=== PATIENT | male | born 1955 | race Caucasian/White ===

== ENCOUNTER 2017-04-11 09:40 | Day surgery (SDC) | payer MEDICAID ==
[2017-04-04 08:42] VITALS: BMI 25.8
[2017-04-11 10:09] VITALS: RESP 18
--- NOTE | 2017-04-11 12:27 | PCM.SURG1 ---
Surgeon's Initial Post Op Note - Surgeon's Notes Surgeon: Dr. Angulo Dewaterer Operator: Dr. Colunga PGYIII; Angela Coe YUAN Type of Anesthesia: General Endo Anesthesia Administered By: MARTINE Pre-Operative Diagnosis: Ventral Hernia, Diastasis Recti Operative Findings: same Post-Operative Diagnosis: same Operation Performed: Repair of ventral hernia, Repair of Diastasis Recti, with mesh Specimen/Specimens Removed: preperitoneal fat Estimated Blood Loss: EBL {In ML}: 5 Blood Products Given: N/A Drains Used: Diaz Post-Op Condition: Good Date of Surgery/Procedure: 04/11/17 Time of Surgery/Procedure: 12:26
[2017-04-11] MEDS ORDERED: ceFAZolin 1 gm FROZEN Premix 0 GM/0 ML ML IVPB ONE (12:44)
[2017-04-11] MEDS ORDERED: Lidocaine 2% w Epi 1:100,000 Inj IJ ONE (12:44)
--- NOTE | 2017-04-11 13:19 | PCM.SURG1 ---
Surgeon's Initial Post Op Note - Surgeon's Notes Surgeon: Dr. Angulo Web Retailer: Angela Coe OMNubia III Pre-Operative Diagnosis: R Neck Lipoma Operative Findings: same Post-Operative Diagnosis: same Operation Performed: Excision of Lipoma R neck Specimen/Specimens Removed: lipoma Estimated Blood Loss: EBL {In ML}: 5 Blood Products Given: N/A Drains Used: No Drains Post-Op Condition: Good Date of Surgery/Procedure: 04/11/17 Time of Surgery/Procedure: 13:19
[2017-04-11 14:00] VITALS: BP 107/69; PULSE 65; TEMP 97.9; O2SAT 98
--- NOTE | 2017-04-11 20:16 | OP ---
PROCEDURE DATE: 04/11/2017 PREOPERATIVE DIAGNOSIS: Recurrent mass right side of the neck. POSTOPERATIVE DIAGNOSES: Recurrent mass right side of the neck and lipoma recurrent. PROCEDURE: Excision. FINDINGS: There is about a 3 to 4 cm of mass which is kind of firm but moveable, located on the right neck just over the sternocleidomastoid muscle but feels like it is going deep under that. DESCRIPTION OF PROCEDURE: Under local anesthesia utilizing lidocaine 2% with epinephrine, the patient was prepared and draped in sterile fashion. An incision was made over the mass extended down subcutaneous tissue. The mass was then identified, it was isolated with sharp dissection. Bleeding was controlled with electrocautery. The mass was totally excised and wound was then closed utilizing multiple interrupted sutures of 3-0 Vicryl and then the skin was closed with subcuticular suture of 3-0 Vicryl with Dermabond. ESTIMATED BLOOD LOSS: 5 mL. COMPLICATIONS: None. Juan C Angulo MD
== END 2017-04-11 13:55 | disposition home or self-care (01) ==
LOC: C.SDS 09:40
PROVIDERS: ATTEND Surgery
DX: D17.0 Benign lipomatous neoplasm of skin and subcutaneous tissue of head, face and neck (principal)